=== PATIENT | female | born 1960 | race Caucasian/White ===

== ENCOUNTER 2017-07-31 06:06 | Inpatient (IN) | payer OTHER ==
[~2017-07-31] VITALS: Ht 154.9 cm; Wt 75.0 kg
[~2017-07-31 06:06] MED LIST: AMLO2.5T PO; AMOX-462 PO; ASPI-556 PO; ATOR10TA69 PO; CITA20TA9 PO; FLUT16H NASAL; LORA10TA7 PO; MELO-107 PO; METO-408 PO; PRED1 PO; PSEU-191 PO; RINGERS SOLUTION,LACTATED 1,000 ML IV ONE
[2017-07-31] MEDS ORDERED: BUPIVACAINE HCL/PF 0.5% 30 ML VIAL ONE (06:46)
[2017-07-31] MEDS ORDERED: SODIUM CHLORIDE 0.9% 30 ML ONE (06:46)
[2017-07-31] MEDS ORDERED: RINGERS SOLUTION,LACTATED 2,000 ML IV ONE (06:47)
[2017-07-31] MEDS ORDERED: HYDROmorphone 2 MG/ML SYRINGE IVP PRN ×2 (07:00→08:30)
[2017-07-31] MEDS ORDERED: BUPIVACAINE LIPOSOME/PF 1.3%-13.3MG/ML SUSPENSION 20 ML VIAL INJ ONE ×2 (07:00)
[2017-07-31] MEDS ORDERED: ONDANSETRON HCL 4 MG/2 ML VIAL IVP PRN ×2 (07:00→09:30)
[2017-07-31] MEDS ORDERED: CYCLOBENZAPRINE HCL 10 MG TABLET PO PRN (07:00)
[2017-07-31] MEDS ORDERED: CELECOXIB 200 MG CAPSULE PO ONE (07:00)
[2017-07-31] MEDS ORDERED: PROMETHAZINE HCL 25 MG/ML VIAL IM PRN (07:00)
[2017-07-31] MEDS ORDERED: TRANEXAMIC ACID 1,000 MG in DEXTROSE 5%-WATER 50 ML IV ONE ×3 (07:00→08:30)
[2017-07-31] MEDS ORDERED: CELECOXIB 200 MG CAPSULE ONE (07:01)
[2017-07-31] MEDS ORDERED: ACETAMINOPHEN 1000 MG/ISO-OSM 100 ML IV ONE (07:01)
[2017-07-31] MEDS: ACETAMINOPHEN 1000 MG/ISO-OSM 100 ML IV SCH ×3 (07:06→19:59)
[2017-07-31] MEDS ORDERED: SODIUM CL IRRIG SOLN BAG 3,000 ML IRRIG ONE (07:16)
[2017-07-31] MEDS ORDERED: SODIUM CHLORIDE 0.9% 10 ML ONE (08:24)
[2017-07-31] MEDS ORDERED: OXYGEN THERAPY IH SCH ×2 (08:27→20:00)
[2017-07-31] MEDS ORDERED: FentaNYL CITRATE-PF 100 MCG/2 ML VIAL IVP PRN (08:30)
[2017-07-31] MEDS ORDERED: MEPERIDINE-PF 25 MG/ML SYRINGE IVP PRN (08:30)
[2017-07-31] MEDS ORDERED: RINGERS SOLUTION,LACTATED 1,000 ML IV ONE (08:56)
[2017-07-31] MEDS ORDERED: SODIUM CHLORIDE 0.9% 1,000 ML IV SCH (09:18)
[2017-07-31] MEDS ORDERED: MAG HYDROX/AL HYDROX/SIMETH 30 ML SUSP UDCUP PO PRN (09:30)
[2017-07-31] MEDS ORDERED: BISACODYL 10 MG RECTAL RECTAL SUPPOSITORY PR PRN (09:30)
[2017-07-31] MEDS ORDERED: DiphenhydrAMINE HCL 50 MG/ML VIAL IVP PRN (09:30)
[2017-07-31] MEDS ORDERED: BENZOCAINE/MENTHOL LOZENGE [8 LOZENGES/PACKET] PO PRN (09:30)
[2017-07-31] MEDS ORDERED: 0.9% SODIUM CHLORIDE 10 ML SYRINGE IVP PRN (09:30)
[2017-07-31 10:20] VITALS: BP 126/81
[2017-07-31] MEDS ORDERED: LIDOCAINE HCL/PF 2% 5 ML VIAL INJ ONE (12:00)
[2017-07-31] MEDS ORDERED: MIDAZOLAM HCL 2 MG/2 ML VIAL IVP ONE (12:00)
[2017-07-31] MEDS ORDERED: DiphenhydrAMINE HCL 50 MG/ML VIAL IVP ONE (12:00)
[2017-07-31] MEDS ORDERED: KETAMINE HCL 50 MG/ML 10 ML VIAL IVP ONE (12:00)
[2017-07-31] MEDS ORDERED: PROPOFOL 1% 20 ML VIAL IVP ONE (12:00)
[2017-07-31] MEDS ORDERED: FentaNYL CITRATE-PF 100 MCG/2 ML VIAL IVP ONE (12:00)
[2017-07-31] MEDS ORDERED: DEXAMETHASONE SOD PHOS 4 MG/ML VIAL IVP ONE (12:00)
[2017-07-31] MEDS ORDERED: METOCLOPRAMIDE HCL 5 MG/ML 2 ML VIAL IVP ONE (12:00)
[2017-07-31] MEDS ORDERED: ONDANSETRON HCL 4 MG/2 ML VIAL IVP ONE (12:00)
[2017-07-31] MEDS: CeFAZolin 1 GM/DEXTROSE 50 ML IV SCH ×2 (15:22→22:57)
[2017-07-31 16:00] VITALS: BP 144/89
[2017-07-31] MEDS: CELECOXIB 200 MG CAPSULE PO SCH (20:00)
[2017-07-31] MEDS: DOCUSATE SODIUM 100 MG CAPSULE PO SCH (20:00)
[2017-07-31 20:25] VITALS: BP 131/71
[2017-07-31] MEDS ORDERED: PNEUMOCOCCAL VACCINE POLYVALENT 0.5 ML VIAL [PPSV23] IM ONE (22:30)
[2017-07-31] MEDS: ZOLPIDEM TARTRATE 5 MG TABLET PO PRN (22:57)
[2017-07-31 23:09] VITALS: BP 131/81
[2017-08-01] MEDS: ACETAMINOPHEN 1000 MG/ISO-OSM 100 ML IV SCH ×2 (01:25→07:15)
[2017-08-01 03:50] VITALS: BP 129/81
[2017-08-01 06:21] LABS: EOSINOPHILS % (AUTO) 0 % (1.0-6.0); HEMOGLOBIN 12.6 g/dL (12.0-16.0); LYMPHOCYTES # (AUTO) 1.3 K/uL (1.0-4.8); LYMPHOCYTES % (AUTO) 9.3 % (22.0-44.0); MEAN CORPUSCULAR HEMOGLOBIN 30.7 pg (26.0-34.0); MEAN CORPUSCULAR HGB CONC 34.1 G/dL (31.0-37.0); MEAN CORPUSCULAR VOLUME 90 fL (80-100); MONOCYTES # (AUTO) 0.4 K/uL (0.1-1.0); NEUTROPHILS # (AUTO) 12.5 K/uL (1.8-7.7); PLATELET COUNT (AUTO) 295 K/uL (150-450); RED BLOOD CELL COUNT(AUTO) 4.12 MIL/uL (4.00-5.20); RED CELL DISTRIBUTION WIDTH 14.1 % (11.5-14.5); WHITE BLOOD COUNT (AUTO) 14.3 K/uL (4.5-11.0)
[2017-08-01 06:48] LABS: ANION GAP 9 mmol/L (8-16); CALCIUM, TOTAL 8.7 mg/dL (8.8-10.5); CARBON DIOXIDE 25 mmol/L (22-29); CHLORIDE 103 mmol/L (98-107); CREATININE 0.66 mg/dL (0.60-1.30); GLOMERULAR FILTR. RATE CALC > 60 mL/min (>60); SODIUM SERUM 137 mmol/L (136-145); UREA NITROGEN, BLOOD 11 mg/dL (7-18)
[2017-08-01 07:17] LABS: NEUTROPHILS % (AUTO) 87.7 % (40.0-70.0); RBC MORPHOLOGY COMMENT NORMAL RBC MORPH
[2017-08-01 07:30] VITALS: BP 146/90
[2017-08-01] MEDS: AmLODIPine BESYLATE 2.5 MG TABLET PO SCH (08:38)
[2017-08-01] MEDS: METOPROLOL SUCCINATE 25 MG ER TABLET PO SCH (08:38)
[2017-08-01] MEDS: CITALOPRAM HYDROBROMIDE 20 MG TABLET PO SCH (08:39)
[2017-08-01] MEDS: DOCUSATE SODIUM 100 MG CAPSULE PO SCH ×2 (08:39→20:39)
[2017-08-01] MEDS: CELECOXIB 200 MG CAPSULE PO SCH (08:39)
[2017-08-01] MEDS: ATORVASTATIN CALCIUM 10 MG TABLET PO SCH (08:39)
[2017-08-01] MEDS ORDERED: RIVAROXABAN 10 MG TABLET PO SCH ×2 (09:00→17:30)
[2017-08-01 11:30] VITALS: BP 137/66
[2017-08-01] MEDS ORDERED: OxyCODONE HCL/ACETAMINOPHEN 10-325 MG TABLET PO PRN (13:00)
[2017-08-01 15:30] VITALS: BP 131/64
[2017-08-01 19:54] VITALS: BP 127/76
[2017-08-01] MEDS: ZOLPIDEM TARTRATE 5 MG TABLET PO PRN (21:17)
[2017-08-02 00:33] VITALS: BP 149/89
[2017-08-02 05:31] VITALS: BP 130/74
[2017-08-02 06:29] LABS: BASOPHILS % (AUTO) 0.3 % (0.0-2.0); EOSINOPHILS % (AUTO) 0.4 % (1.0-6.0); HEMATOCRIT 33.2 % (36-46); HEMOGLOBIN 11.5 g/dL (12.0-16.0); LYMPHOCYTES # (AUTO) 3.2 K/uL (1.0-4.8); LYMPHOCYTES % (AUTO) 30.3 % (22.0-44.0); MEAN CORPUSCULAR HEMOGLOBIN 31.6 pg (26.0-34.0); MEAN CORPUSCULAR HGB CONC 34.6 G/dL (31.0-37.0); MEAN CORPUSCULAR VOLUME 91 fL (80-100); MONOCYTES # (AUTO) 0.7 K/uL (0.1-1.0); MONOCYTES % (AUTO) 6.3 % (2.0-9.0); NEUTROPHILS # (AUTO) 6.7 K/uL (1.8-7.7); NEUTROPHILS % (AUTO) 62.7 % (40.0-70.0); PLATELET COUNT (AUTO) 282 K/uL (150-450); RED BLOOD CELL COUNT(AUTO) 3.63 MIL/uL (4.00-5.20); RED CELL DISTRIBUTION WIDTH 14.5 % (11.5-14.5); WHITE BLOOD COUNT (AUTO) 10.7 K/uL (4.5-11.0)
[2017-08-02 07:30] VITALS: BP 136/75
[2017-08-02] MEDS: ATORVASTATIN CALCIUM 10 MG TABLET PO SCH (08:46)
[2017-08-02] MEDS: AmLODIPine BESYLATE 2.5 MG TABLET PO SCH (08:47)
[2017-08-02] MEDS: DOCUSATE SODIUM 100 MG CAPSULE PO SCH (08:47)
[2017-08-02] MEDS: CELECOXIB 200 MG CAPSULE PO SCH (08:47)
[2017-08-02] MEDS: CITALOPRAM HYDROBROMIDE 20 MG TABLET PO SCH (08:48)
[2017-08-02] MEDS: METOPROLOL SUCCINATE 25 MG ER TABLET PO SCH (08:48)
[2017-08-02 11:30] VITALS: BP 130/78
[2017-08-02] MEDS ORDERED: PERCT PO ×3 (15:11→15:15)
[2017-08-02] MEDS ORDERED: RIVA10 PO (15:13)
[2017-08-02] MEDS ORDERED: ATOR10TA69 PO (15:24)
== END 2017-08-02 15:55 | disposition home health service (06) | DRG 301 ==
LOC: 4E 06:06
PROVIDERS: ADMIT Orthopaedic Surgery; ATTEND Orthopaedic Surgery
PROC: 0SR903Z Replacement of Right Hip Joint with Ceramic Synthetic Substitute, Open Approach (ICD-10-PCS; principal; 2017-07-31 07:30)
DX: M16.11 Unilateral primary osteoarthritis, right hip (principal); I10 Essential (primary) hypertension; E78.5 Hyperlipidemia, unspecified; G47.00 Insomnia, unspecified; G47.33 Obstructive sleep apnea (adult) (pediatric); F32.9 Major depressive disorder, single episode, unspecified; Z83.3 Family history of diabetes mellitus; Z79.899 Other long term (current) drug therapy; Z79.82 Long term (current) use of aspirin
CPT/HCPCS: 72170; 87081; 88300; 93005; 97116; 97161; 97165; 97530; 97535; C9290; J0131; J0690; J1100; J1170; J1200; J2250; J2405; J2704; J2765; J3010; J3490; J7030; J7060; J7120

== ENCOUNTER 2017-11-19 11:41 | Emergency (ER) | payer OTHER ==
[~2017-11-19] VITALS: Ht 160 cm; Wt 72.7 kg
[~2017-11-19 11:41] MED LIST changes: -AMOX-462 PO; -ASPI-556 PO; -FLUT16H NASAL; -LORA10TA7 PO; -MELO-107 PO; +PERCT PO; -PRED1 PO; -PSEU-191 PO; -RINGERS SOLUTION,LACTATED 1,000 ML IV ONE; +RIVA10 PO
[2017-11-19 11:58] VITALS: BP 144/90
[2017-11-19] MEDS ORDERED: ZOLP5 PO (12:03)
== END 2017-11-19 16:22 | disposition home or self-care (01) ==
LOC: EMS 11:43
DX: S82.892A Other fracture of left lower leg, initial encounter for closed fracture (principal); E78.00 Pure hypercholesterolemia, unspecified; I10 Essential (primary) hypertension; Z98.890 Other specified postprocedural states; Z79.899 Other long term (current) drug therapy; W01.0XXA Fall on same level from slipping, tripping and stumbling without subsequent striking against object, initial encounter; Y93.89 Activity, other specified; Y92.89 Other specified places as the place of occurrence of the external cause; Y99.8 Other external cause status
CPT/HCPCS: 29515; 99284

== ENCOUNTER 2017-11-24 17:54 | Emergency (ER) | payer OTHER ==
[~2017-11-24] VITALS: Ht 157.5 cm; Wt 76.0 kg
[~2017-11-24 17:54] MED LIST changes: -PERCT PO; -RIVA10 PO; +ZOLP5 PO
[2017-11-24 20:02] VITALS: BP 131/77
== END 2017-11-24 20:03 | disposition home or self-care (01) ==
LOC: EMS 17:55
DX: S82.892A Other fracture of left lower leg, initial encounter for closed fracture (principal); E78.00 Pure hypercholesterolemia, unspecified; I10 Essential (primary) hypertension; F41.9 Anxiety disorder, unspecified; X58.XXXA Exposure to other specified factors, initial encounter; Y93.89 Activity, other specified; Y92.89 Other specified places as the place of occurrence of the external cause; Y99.8 Other external cause status
CPT/HCPCS: 29515; 99283

== ENCOUNTER 2023-06-11 11:32 | Emergency (ER) | payer BC, OTHER ==
[~2023-06-11] VITALS: Ht 157.5 cm; Wt 57.3 kg
[~2023-06-11 11:32] MED LIST changes: -AMLO2.5T PO; +AMLO2.5T96 PO; +CITA-144 PO; -CITA20TA9 PO; +ZOLP-280 PO; -ZOLP5 PO
[2023-06-11 11:52] VITALS: TEMP 99.6
[2023-06-11 12:07] LABS: COVID AG,FIA SOURCE NASAL SWAB
[2023-06-11 12:33] LABS: SARS-COV2 (COVID) ANTIGEN,FIA Negative (Negative)
[2023-06-11 12:34] LABS: INFLUENZA TYPE A NEGATIVE FOR TYPE A (NEGATIVE); INFLUENZA TYPE B NEGATIVE FOR TYPE B (NEGATIVE)
[2023-06-11 15:30] VITALS: BP 179/74; PULSE 66; RESP 18
== END 2023-06-11 15:34 | disposition home or self-care (01) ==
LOC: EMS 11:32
DX: J06.9 Acute upper respiratory infection, unspecified (principal); I10 Essential (primary) hypertension; E78.00 Pure hypercholesterolemia, unspecified; F41.9 Anxiety disorder, unspecified; Z79.899 Other long term (current) drug therapy; Z20.822 Contact with and (suspected) exposure to COVID-19
CPT/HCPCS: 99284; 71045; 87426; 87804; C9803